=== PATIENT | female | born 1980 | race Caucasian/White ===

== ENCOUNTER → 2018-06-22 | Outpatient (CLI) | payer OTHER ==
--- NOTE | 2018-06-22 16:22 | Diagnostic Imaging Report ---
Date and Time: 03/22/2018 Procedure: Ultrasound-guided thyroid fine-needle aspiration generator switchboard operator: Dr. Hernandez Pre-operative diagnosis: Right thyroid nodule Post-operative diagnosis: Right thyroid nodule Conscious Sedation: None Additional Medications: Lidocaine 1% for local anesthesia Fluoroscopy time: 0 Dose-area Product: 0 mGycm2. Frontal Air Kerma: 0 Contrast used: 0 Estimated blood loss: Minimal Specimens: FNA x5 Implants: None DISCUSSION: Informed consent was obtained and documented in the medical record. The right neck was prepped and draped in the standard sterile fashion. A suitable percutaneous approach to the right thyroid nodule was identified and the skin and subcutaneous tissues was infiltrated with 1% lidocaine. Then under continuous sonographic guidance a total of 5 fine needle aspiration specimens were obtained using 25-gauge needles. Specimens were submitted to on-site cytopathology personnel and adequacy was confirmed. The needle was removed and a sterile dressing was applied. The patient tolerated the procedure well without immediate complication. FINDINGS: Right thyroid nodule IMPRESSION: Successful ultrasound-guided fine-needle aspiration of a right thyroid nodule without immediate complication. Signed by: Dr. Guy Hernandez M.D. on 06/22/2018 4:18 PM
--- NOTE | 2018-06-22 16:22 | Diagnostic Imaging Report ---
Date and Time: 03/22/2018 Procedure: Ultrasound-guided thyroid fine-needle aspiration reeling and tubing machine operator: Dr. Hernandez Pre-operative diagnosis: Right thyroid nodule Post-operative diagnosis: Right thyroid nodule Conscious Sedation: None Additional Medications: Lidocaine 1% for local anesthesia Fluoroscopy time: 0 Dose-area Product: 0 mGycm2. Frontal Air Kerma: 0 Contrast used: 0 Estimated blood loss: Minimal Specimens: FNA x5 Implants: None DISCUSSION: Informed consent was obtained and documented in the medical record. The right neck was prepped and draped in the standard sterile fashion. A suitable percutaneous approach to the right thyroid nodule was identified and the skin and subcutaneous tissues was infiltrated with 1% lidocaine. Then under continuous sonographic guidance a total of 5 fine needle aspiration specimens were obtained using 25-gauge needles. Specimens were submitted to on-site cytopathology personnel and adequacy was confirmed. The needle was removed and a sterile dressing was applied. The patient tolerated the procedure well without immediate complication. FINDINGS: Right thyroid nodule IMPRESSION: Successful ultrasound-guided fine-needle aspiration of a right thyroid nodule without immediate complication. Signed by: Dr. Guy Hernandez M.D. on 06/22/2018 4:18 PM
== END ==
LOC: US 12:35
PROVIDERS: ATTEND Otolaryngology
DX: E04.1 Nontoxic single thyroid nodule (principal)
CPT/HCPCS: 10022; 76942; 88112; 88172; 88173; 88305

== ENCOUNTER → 2020-08-30 | Outpatient (CLI) | payer OTHER ==
[~2020-08-30] MED LIST: COVID-19 VACC, MRNA(MODERNA)/PF 100 MCG/0.5 ML VIAL IM ONE
== END ==
LOC: VACCPMC 18:42
DX: Z23 Encounter for immunization (principal); Z20.822 Contact with and (suspected) exposure to COVID-19

== ENCOUNTER → 2020-09-27 | Outpatient (CLI) | payer OTHER | END | DRG 951 | LOC: VACCPMC 09:35 | DX: Z23 Encounter for immunization (principal); Z20.822 Contact with and (suspected) exposure to COVID-19 | CPT/HCPCS: 0012A; 91301 ==